=== PATIENT | male | born 1960 | race Caucasian/White ===

== ENCOUNTER 2018-03-17 17:08 | Observation (INO) ==
[2018-03-17] MEDS ORDERED: Sod Chloride 0.9% Inj 1,000 ML IV.SIG ONE (17:29)
--- NOTE | 2018-03-17 17:40 | ED ---
HPI General Chief complaint: Weakness Stated complaint: Poss pneumonia/vomiting/mumbling/falling/sob Time Seen by Provider: 03/17/18 17:17 Source: patient, family and RN notes reviewed Mode of arrival: ambulatory History of Present Illness HPI narrative: 57yM presenting with fever, cough, nausea and vomiting, and multiple falls. The patient states that for the past several days he's been " too weak to walk" and has had multiple falls, had a fever of 104F 2 days ago, has a non-productive cough, and multiple episodes of vomiting. His is concerned that he is aspirating when he vomits. The patient presented today because he was unable to ambulate secondary to generalized weakness. Patient is visiting from [place]. Last viral load undetectable, T cell count >500. Related Data Home Medications Medication Instructions Recorded Confirmed lopinavir-ritonavir [Kaletra] 2 tab PO Q12H 03/17/18 03/17/18 tenofovir disoproxil fumarate 300 mg PO DAILY 03/17/18 03/17/18 zidovudine 300 mg PO Q12H 03/17/18 03/17/18 Allergies Allergy/AdvReac Type Severity Reaction Status Date / Time Bleach (Sodium Hypochlorite) Allergy Rash Verified 03/17/18 17:15 latex Allergy Rash Verified 03/17/18 17:15 Review of Systems ROS: all other systems reviewed are negative Constitutional Reports body ache(s), Reports chills, Reports fever(s), Reports frequent falls and Reports poor appetite Eyes Denies loss of vision ENT Denies nasal congestion Cardiovascular Denies chest pain Respiratory Reports cough Gastrointestinal Denies abdominal pain, Reports nausea and Reports vomiting Genitourinary Denies dysuria Musculoskeletal Reports myalgias Integumentary/Breasts Denies rash Neurologic Reports frequent falls PMFSH History History Provided By: Patient Medical History Medical History AIDS (Acute) Social History Social History Substance History: No History of Abuse Smoking Status: Current every day smoker Tobacco Type: Cigarettes How Often Do You Have a Drink Containing Alcohol: Never Recent Travel in [facility] within the Last 8 Weeks: No Recent Out of Country Travel within the Last 8 Weeks: No Exam Const General: frail appearing Nutritional Appearance: cachectic HENMT Head: normocephalic and atraumatic Face and sinus: normal facial exam Other: Mucosa dry Eyes General: appearance normal, both eyes and all related structures Pupils: PERRL Chest Chest: normal inspection of the chest Resp Effort & Inspection: normal respiratory effort Other: Coarse breath sounds at bases bilaterally Cardio Rate: regular rate Rhythm: regular rhythm GI Other: Soft and non-tender in all quadrants, no guarding or rebound Skin General: no rashes or lesions noted Neuro General: alert, awake, oriented x3 and no focal motor deficits Psych Affect: normal affect Course Initial Documented Vital Signs Temperature 97.3 F L 03/17/18 17:11 Pulse Rate 73 03/17/18 17:11 Respiratory Rate 20 03/17/18 17:11 Blood Pressure 116/64 03/17/18 17:11 Pulse Oximetry 96 03/17/18 17:11 Last Documented Vital Signs Temperature 97.3 F L 03/17/18 17:11 Pulse Rate 54 L 03/17/18 19:38 Respiratory Rate 18 03/17/18 19:38 Blood Pressure 116/73 03/17/18 19:38 Pulse Oximetry 97 03/17/18 19:38 Medical Decision Making [facility] Narrative Medical decision making narrative: Assessment: 57yM presenting with fever, cough, nausea/ vomiting, multiple falls Plan: EKG and monitor IV fluids, antiemetics Labs, including lactate CXR CT abd/pelvis and CTH Addendum: Patient remains unable to tolerate PO while in the ED. Workup shows mild hyponatremia, hemoconcentration/ dehydration, otherwise labs unremarkable. CXR negative, CTH shows ? artifact from tent, rad recommends non-emergent MRI; CT abd/ pelvis shows left 10th rib fracture and right lung consolidation ( possible mass). This patient requires IV hydration and re-evaluation until able to tolerate PO. Case discussed with Dr. Cote of [facility]. Medical Screen Exam Complete: Yes Emergency Medical Condition: Yes Differential Diagnosis Differential Diagnosis: Differential diagnosis includes, but is not limited to: pneumonia, UTI, dehydration, electrolyte abnormality, sepsis/SIRS Lab Data Lab results reviewed: Yes I reviewed the patient's lab results. Result diagrams: 03/17/18 18:00 03/17/18 18:00 Lab Results 03/17/18 03/17/18 03/17/18 Range/Units 18:00 18:00 18:00 CBC w Diff Slide review pending WBC 5.4 (4.0-11.0) th/mm3 RBC 5.40 (4.50-5.90) mil/mm3 Hgb 17.6 H (13.0-17.0) gm/dL Hct 51.6 H (39.0-51.0) % MCV 95.5 (80.0-100.0) fL MCH 32.5 (27.0-34.0) pg MCHC 34.1 (32.0-36.0) % RDW 14.2 (11.6-17.2) % Plt Count 224 (150-450) th/mm3 MPV 10.5 (7.0-11.0) fL Neut % (Auto) 51.2 (16.0-70.0) % Lymph % (Auto) 34.0 (9.0-44.0) % Reynolds % (Auto) 11.3 H (0.0-8.0) % Eos % (Auto) 1.9 (0.0-4.0) % Baso % (Auto) 1.6 (0.0-2.0) % Neut # (Auto) 2.8 (1.8-7.7) th/mm3 Lymph # (Auto) 1.8 (1.0-4.8) th/mm3 Reynolds # (Auto) 0.6 (0.0-0.9) th/mm3 Eos # (Auto) 0.1 (0.0-0.4) th/mm3 Baso # (Auto) 0.1 (0.0-0.2) th/mm3 WBC Differential . Diff Scan Auto diff confirmed Differential Comment . Platelet Estimate Normal (Normal) Platelet Morphology Enlarged H (Normal) Sodium 130 L (136-145) meq/L Potassium 3.5 (3.5-5.1) meq/L Chloride 94 L (98-107) meq/L Carbon Dioxide 24.5 (21.0-32.0) meq/L Anion Gap 12 (5-15) meq/L BUN 29 H (7-18) mg/dL Creatinine 0.98 (0.60-1.30) mg/dL Estimated GFR 79 L (>89) mL/min Random Glucose 105 (74-106) mg/dL Lactic Acid (0.4-2.0) mmol/L Calcium 8.9 (8.5-10.1) mg/dL Phosphorus Cancelled 4.1 Magnesium Cancelled 3.1 H Total Bilirubin 1.3 H (0.2-1.0) mg/dL AST 60 H (15-37) U/L ALT 49 (12-78) U/L Alkaline Phosphatase 68 (45-117) U/L Troponin I Cancelled Less than 0.02 L Total Protein 8.7 H (6.4-8.2) g/dL Albumin 3.5 (3.4-5.0) g/dL Lipase (73-393) U/L Urine Color (Yellw/Straw) Urine Clarity (Clear) Urine pH (5.0-8.5) Ur Specific Banks (1.002-1.035) Urine Protein (Neg-Trace) mg/dL Urine Glucose (UA) (Negative) mg/dL Urine Ketones (Negative) mg/dL Urine Occult Blood (Negative) Urine Nitrate (Negative) Urine Bilirubin (Negative) Urine Ictotest (Negative) Urine Urobilinogen (Less than 2) mg/dL Ur Leukocyte Esterase (Negative) Urine RBC (0-3) /hpf Urine WBC (0-5) /hpf Ur Squamous Epith Cells (0-5) /hpf Urine Bacteria (None) /hpf Hyaline Casts (0-3) /lpf Urine Mucus (Occasional) /lpf Micro UA Comment Ur Microscopic Review Urine Culture Comments 03/17/18 03/17/18 03/17/18 Range/Units 18:00 18:55 19:07 CBC w Diff WBC (4.0-11.0) th/mm3 RBC (4.50-5.90) mil/mm3 Hgb (13.0-17.0) gm/dL Hct (39.0-51.0) % MCV (80.0-100.0) fL MCH (27.0-34.0) pg MCHC (32.0-36.0) % RDW (11.6-17.2) % Plt Count (150-450) th/mm3 MPV (7.0-11.0) fL Neut % (Auto) (16.0-70.0) % Lymph % (Auto) (9.0-44.0) % Reynolds % (Auto) (0.0-8.0) % Eos % (Auto) (0.0-4.0) % Baso % (Auto) (0.0-2.0) % Neut # (Auto) (1.8-7.7) th/mm3 Lymph # (Auto) (1.0-4.8) th/mm3 Reynolds # (Auto) (0.0-0.9) th/mm3 Eos # (Auto) (0.0-0.4) th/mm3 Baso # (Auto) (0.0-0.2) th/mm3 WBC Differential Diff Scan Differential Comment Platelet Estimate (Normal) Platelet Morphology (Normal) Sodium (136-145) meq/L Potassium (3.5-5.1) meq/L Chloride (98-107) meq/L Carbon Dioxide (21.0-32.0) meq/L Anion Gap (5-15) meq/L BUN (7-18) mg/dL Creatinine (0.60-1.30) mg/dL Estimated GFR (>89) mL/min Random Glucose (74-106) mg/dL Lactic Acid 1.7 (0.4-2.0) mmol/L Calcium (8.5-10.1) mg/dL Phosphorus Magnesium Total Bilirubin (0.2-1.0) mg/dL AST (15-37) U/L ALT (12-78) U/L Alkaline Phosphatase (45-117) U/L Troponin I Total Protein (6.4-8.2) g/dL Albumin (3.4-5.0) g/dL Lipase 304 (73-393) U/L Urine Color Yellow (Yellw/Straw) Urine Clarity Clear (Clear) Urine pH 6.0 (5.0-8.5) Ur Specific Banks Greater/equal 1.030 (1.002-1.035) Urine Protein 100 H (Neg-Trace) mg/dL Urine Glucose (UA) Negative (Negative) mg/dL Urine Ketones 15 H (Negative) mg/dL Urine Occult Blood Trace (Negative) Urine Nitrate Negative (Negative) Urine Bilirubin Negative (Negative) Urine Ictotest Negative (Negative) Urine Urobilinogen 2.0 H (Less than 2) mg/dL Ur Leukocyte Esterase Negative (Negative) Urine RBC 0-3 (0-3) /hpf Urine WBC 0-5 (0-5) /hpf Ur Squamous Epith Cells 0-5 (0-5) /hpf Urine Bacteria Few H (None) /hpf Hyaline Casts 4-10 H (0-3) /lpf Urine Mucus Many H (Occasional) /lpf Micro UA Comment Culture not ind Ur Microscopic Review Microscopic reviewed Urine Culture Comments Culture not ind Imaging Data Radiologist's impression: Chest X-Ray 03/17/18 17:29 CONCLUSION: No acute cardiopulmonary abnormality is identified. Background lung changes may indicate obstructive airways disease/emphysema. Abdomen/Pelvis CT 03/17/18 18:53 CONCLUSION: 1. Dense area of subsegmental consolidation in the medial right lower lung parasagittal region. Since the lesion is devoid of air bronchograms, cannot exclude a tumor. 2. 11 mm hypodense lesion in the superior spleen. 3. Left 10th rib fracture. 4. Multiple subcutaneous varices in the lower abdominal wall extending to the inguinal region. Head CT 03/17/18 19:02 CONCLUSION: 1. No acute findings in the brain. 2. Dense area of masslike calcification in the right posterior parieto- occipital region, possibly related to the tentorium. May consider further characterization with nonemergent MRI with and without contrast. . ECG Data Attestation: I personally reviewed and interpreted this ECG as follows: Interpretation: Rate: 60 BPM Rhythm: Sinus [place]: Left Intervals: Normal intervals, no blocks, QTc 443 ms Q waves: V2 T waves: Upright, no inversions ST segments: No elevations or depressions Impression: Non-specific EKG, no previous EKG available for comparison. Discharge Plan Discharge Disposition Patient Disposition: 30 Still Patient Discharge Condition Condition: Stable Discharge Details Diagnosis: Dehydration, Hyponatremia, Multiple falls, Closed rib fracture, Intractable vomiting, Lung mass Physicians Team ED Provider: Charmaine Randall Primary Care Provider: Primary Care Physici,[place] Rxs /Orders / Referrals /Forms Prescriptions: No Action zidovudine 300 mg Tablet 300 mg PO Q12H RF: 0 tenofovir disoproxil fumarate 300 mg Tablet 300 mg PO DAILY RF: 0 lopinavir-ritonavir [Kaletra] 200-50 mg Tablet 2 tab PO Q12H RF: 0 Discharge Interventions Interventions: Vital Signs Last Done: 03/17/18 19:38 Status ED Status: With Doctor
--- NOTE | 2018-03-17 17:55 | XR ---
EXAM DATE: 03/17/2018 5:29 PM EDT AGE/SEX: 57 years / Male INDICATIONS: . Cough, weakness, short of breath. CLINICAL DATA: This is the patient's initial encounter. Patient reports that signs and symptoms have been present for 1 day and indicates a pain score of 0/10. MEDICAL/SURGICAL HISTORY: None. None. COMPARISON: No prior exams available for comparison. FINDINGS: Frontal and lateral views of the chest demonstrate a normal-sized cardiac silhouette. EKG lines overl ie the patient. Lungs are hyperexpanded. No pleural effusion, airspace consolidation, or pneumothorax is identified. There are left rib changes likely related to old healed fractures. Sclerotic density in the right proximal arm measuring 11 mm appears to be within the soft tissues adjacent to the proxi mal humerus. CONCLUSION: No acute cardiopulmonary abnormality is identified. Background lung changes may indicate obstructive airways disease/emphysema. Electronically signed by: Russ Abreu MD 03/17/2018 5:54 PM EDT
[2018-03-17 18:25] LABS: Baso # (Auto) 0.1 th/mm3 (0.0-0.2); Baso % (Auto) 1.6 % (0.0-2.0); Chloride 94 meq/L (98-107); Eos # (Auto) 0.1 th/mm3 (0.0-0.4); Eos % (Auto) 1.9 % (0.0-4.0); Hematocrit 51.6 % (39.0-51.0); Hemoglobin 17.6 gm/dL (13.0-17.0); Lymph # (Auto) 1.8 th/mm3 (1.0-4.8); Mean Corpuscular HGB Conc 34.1 % (32.0-36.0); Mean Corpuscular Hemoglobin 32.5 pg (27.0-34.0); Mean Corpuscular Volume 95.5 fL (80.0-100.0); Mean Platelet Volume 10.5 fL (7.0-11.0); Mono # (Auto) 0.6 th/mm3 (0.0-0.9); Mono % (Auto) 11.3 % (0.0-8.0); Neut # (Auto) 2.8 th/mm3 (1.8-7.7); Neut % (Auto) 51.2 % (16.0-70.0); Platelet Count 224 th/mm3 (150-450); Red Cell Distribution Width 14.2 % (11.6-17.2); Sodium 130 meq/L (136-145); White Blood Count 5.4 th/mm3 (4.0-11.0)
[2018-03-17 18:28] LABS: Calcium 8.9 mg/dL (8.5-10.1)
[2018-03-17 18:29] LABS: Albumin 3.5 g/dL (3.4-5.0); Anion Gap 12 meq/L (5-15); Blood Urea Nitrogen 29 mg/dL (7-18); Carbon Dioxide 24.5 meq/L (21.0-32.0); Glucose,Random 105 mg/dL (74-106); Magnesium 3.1 mg/dL (1.5-2.5)
[2018-03-17 18:32] LABS: Alanine Aminotransferase 49 U/L (12-78); Aspartate Aminotransferase 60 U/L (15-37); Glomerular Filtration Rate 79 mL/min (>89); Phosphorus 4.1 mg/dL (2.5-4.9)
[2018-03-17 18:33] LABS: Total Protein 8.7 g/dL (6.4-8.2)
[2018-03-17 18:35] LABS: Alkaline Phosphatase 68 U/L (45-117); Potassium 3.5 meq/L (3.5-5.1)
[2018-03-17 19:19] LABS: Clarity,Urine Clear (Clear); Color,Urine Yellow (Yellw/Straw); Glucose,Urine (UA) Negative (Negative); Leukocyte Esterase,Urine Negative (Negative); Nitrite,Urine Negative (Negative); Specific Gravity,Urine Greater/Equal 1.030 (1.002-1.035)
[2018-03-17 19:23] LABS: Bilirubin,Urine Negative (Negative); Ictotest,Urine Negative (Negative)
[2018-03-17 19:28] LABS: RBC,Urine 0-3 /hpf (0-3)
[2018-03-17 19:29] LABS: Bacteria,Urine Few /hpf; Squamous Epithelial Cell,Urine 0-5 /hpf (0-5); WBC,Urine 0-5 /hpf (0-5)
[2018-03-17 19:30] LABS: Mucus,Urine Many /lpf (Occasional)
--- NOTE | 2018-03-17 19:30 | CT ---
EXAM DATE: 03/17/2018 7:08 PM EDT AGE/SEX: 57 years / Male INDICATIONS: Trauma. Fall. CLINICAL DATA: This is the patient's initial encounter. Patient reports that signs and symptoms have been present for 1 day and indicates a pain score of 0/10. MEDICAL/SURGICAL HISTORY: None. None. RADIATION DOSE: 60.36 CTDI (mGy) COMPARISON: No prior exams available for comparison. TECHNIQUE: CT of the head without contrast. Using automated exposure control and adjustment of the mA and/or kV according to patient size, radiation dose was kept as low as reasonably achievable to ob tain optimal diagnostic quality images. DICOM format image data is available electronically for revi ew and comparison. FINDINGS: Cerebrum: The ventricles are normal for age. No evidence of midline shift, mass lesion, hemorrhage or acute infarction. No extraaxial fluid collections are seen. Posterior Fossa: The cerebellum and brainstem are intact. The 4th ventricle is midline. There is a densely calcified 1.5 cm mass in the right posterior parietal mid convexity region. There is no conne ction to the inner table. The location suggests this may be adjacent to or related to the tentorium. The cerebellopontine angle is unremarkable. Extracranial: The visualized portion of the orbits is intact. Skull: The calvaria is intact. No evidence of skull fracture. CONCLUSION: 1. No acute findings in the brain. 2. Dense area of masslike calcification in the right posterior parieto-occipital region, possibly re lated to the tentorium. May consider further characterization with nonemergent MRI with and without c ontrast. . Electronically signed by: Bharat Melendez MD 03/17/2018 7:28 PM EDT
[2018-03-17 19:37] LABS: Platelet Estimate Normal (Normal)
[2018-03-17] MEDS ORDERED: Bisacodyl 10 MG Supp RECTAL PRN (19:59)
--- NOTE | 2018-03-17 20:26 | CT ---
EXAM DATE: 03/17/2018 6:55 PM EDT AGE/SEX: 57 years / Male INDICATIONS: Nausea. Vomiting. Weakness. CLINICAL DATA: This is the patient's initial encounter. Patient reports that signs and symptoms have been present for 1 week and indicates a pain score of 0/10. MEDICAL/SURGICAL HISTORY: None. None. ORAL CONTRAST: No oral contrast ingested. RADIATION DOSE: 4.45 CTDI (mGy) COMPARISON: No prior exams available for comparison. TECHNIQUE: Multiple contiguous axial images were obtained through the abdomen and pelvis following b olus infusion of 75 ml Omnipaque 350 (iohexol) nonionic water-soluble contrast as a single exam dos e. No oral contrast ingested. Using automated exposure control and adjustment of the mA and/or kV ac cording to patient size, radiation dose was kept as low as reasonably achievable to obtain optimal di agnostic quality images. DICOM format image data is available electronically for review and comparis on. FINDINGS: Lower Lungs: There is focal consolidation in the medial right lung and the paraesophageal groove talia uring 3.4 cm. There are also patchy acinar infiltrates in the medial right lower lung. The left lower lung is clear. Liver: The liver has a homogeneous density without space-occupying lesion. There is no dilation of th e biliary tree. No calcified gallstones. Spleen: Normal size. 11 mm oval hypodense lesion in the upper spleen. Pancreas: Unremarkable without mass or calcification. Kidneys: Normal in size and shape. No evidence of mass or hydronephrosis. Adrenal Glands: Unremarkable. Aorta: The aorta and proximal iliac vessels are grossly unremarkable without aneurysmal dilation. Bowel/Mesentery: The bowel loops are grossly unremarkable. The cecum and sigmoid colon have a normal configuration. Abdominal Wall: Intact. There are multiple subcutaneous varices in the lower anterior pelvic wall ex tending down to the inguinal region. Retroperitoneum: No evidence of adenopathy in the retrocrural, para-aortic, or deep pelvic regions. Bladder: Contours are smooth. Reproductive Organs: No abnormal masses or calcifications seen. Inguinal: The inguinal region is unremarkable without evidence of adenopathy. Bony Structures: Displaced fracture of the lower lateral left 10th rib.. CONCLUSION: 1. Dense area of subsegmental consolidation in the medial right lower lung parasagittal region. Sinc e the lesion is devoid of air bronchograms, cannot exclude a tumor. 2. 11 mm hypodense lesion in the superior spleen. 3. Left 10th rib fracture. 4. Multiple subcutaneous varices in the lower abdominal wall extending to the inguinal region. Electronically signed by: Bharat Melendez MD 03/17/2018 8:24 PM EDT
[2018-03-17] MEDS ORDERED: Sod Chloride 0.9% Inj 1,000 ML IV.CONT SCH (20:30)
[2018-03-17] MEDS: Sod Chloride 0.9% Inj 1,000 ML IV.CONT SCH (21:05)
[2018-03-17] MEDS: RITONAVIR PO SCH (21:06)
[2018-03-17] MEDS: LOPINAVIR PO SCH (21:06)
[2018-03-18] MEDS: Sod Chloride 0.9% Inj 1,000 ML IV.CONT SCH ×2 (04:47→05:27)
[2018-03-18 06:32] LABS: Baso # (Auto) 0.1 th/mm3 (0.0-0.2); Eos # (Auto) 0.3 th/mm3 (0.0-0.4); Eos % (Auto) 4.3 % (0.0-4.0); Hematocrit 43.3 % (39.0-51.0); Lymph % (Auto) 32.4 % (9.0-44.0); Mean Corpuscular HGB Conc 33.2 % (32.0-36.0); Mean Corpuscular Hemoglobin 32.3 pg (27.0-34.0); Mean Corpuscular Volume 97.4 fL (80.0-100.0); Mean Platelet Volume 8.9 fL (7.0-11.0); Mono # (Auto) 0.7 th/mm3 (0.0-0.9); Mono % (Auto) 11.6 % (0.0-8.0); Neut % (Auto) 49.7 % (16.0-70.0); Platelet Count 222 th/mm3 (150-450); Red Blood Count 4.45 mil/mm3 (4.50-5.90); White Blood Count 6.1 th/mm3 (4.0-11.0)
[2018-03-18 06:41] LABS: Hemoglobin 14.4 gm/dL (13.0-17.0)
[2018-03-18 07:16] LABS: Alanine Aminotransferase 34 U/L (12-78); Albumin 2.6 g/dL (3.4-5.0); Alkaline Phosphatase 53 U/L (45-117); Anion Gap 10 meq/L (5-15); Aspartate Aminotransferase 36 U/L (15-37); Blood Urea Nitrogen 19 mg/dL (7-18); Calcium 7.7 mg/dL (8.5-10.1); Glomerular Filtration Rate Greater Than 89 mL/min (>89); Glucose,Random 88 mg/dL (74-106); Potassium 3.1 meq/L (3.5-5.1); Sodium 136 meq/L (136-145); Total Protein 6.3 g/dL (6.4-8.2)
[2018-03-18 07:19] LABS: Chloride 104 meq/L (98-107)
[2018-03-18] MEDS ORDERED: Tenofovir 300 MG Tablet PO SCH (09:00)
[2018-03-18] MEDS: RITONAVIR PO SCH ×2 (09:42→21:50)
[2018-03-18] MEDS: LOPINAVIR PO SCH ×2 (09:42→21:50)
--- NOTE | 2018-03-18 11:18 | P.HP ---
History of Present Illness Primary Care Physician: No Primary Care Physician Chief Complaint: Weakness, fall History of Present Illness: 57-year-old male with known history of HIV who is down here visiting from [place]. Patient indicates that over the last few days he has had symptoms to include weakness, lightheadedness, falling, difficulty ambulating. Patient indicates that he has had significant nausea which is caused him not to really eat or drink over the last 3 days. Because he has been so weak and is fallen he came to the hospital for evaluation. Patient was found to have signs of dehydration, CT scan indicates possible lung mass versus dense consolidation, fractured ribs. Patient did not have any constitutional symptoms to include tachycardia, tachypnea, hypoxia, leukocytosis, fever to indicate possible infection. Patient states that he usually takes his antiviral medication except for the last 3 days since he has had no appetite and not really eating or drinking anything. Patient denies any chest pain, shortness of breath, abdominal pain. He does admit to nausea, poor appetite, generalized weakness. - Diagnosis (1) Dehydration (2) Hyponatremia (3) Multiple falls (4) Lung mass Review of Systems All other systems reviewed negative except as stated in HPI Constitutional: Reports lack of energy, Reports weakness, Reports other ( Decreased appetite) Gastrointestinal: Reports nausea Neurologic: Reports frequent falls PMFSH - History History Provided By: Patient - Medical History Medical History: Medical History (Last Reviewed 03/18/18 @ 10:54 by THUY June) AIDS - Surgical History Surgical History: Surgical History (Last Updated 03/18/18 @ 10:54 by THUY June) No history of previous surgery - Family History Family History: Family History (Last Updated 03/18/18 @ 10:54 by THUY June) Father History of cancer Mother History of cancer - Tobacco History Second Hand Smoke Exposure: Yes Tobacco Use In Past 30 Days: Yes Smoking Status: Current every day smoker Tobacco Type: Cigarettes Packs Per Day: 0.5 Years Smoked: 40 - Alcohol History How Often Do You Have a Drink Containing Alcohol: Never - Substance Use History Substance History: Past History - Travel History Recent Travel in the [place] Within the Last 8 Weeks: Yes Recent Travel Out of the Country Within the Last 8 Weeks: No - Immunization History Tetanus Immunization: <5 Years Hx Influenza Vaccine This Season: No Medications and Allergies Active Medications: Active Medications Al Hydroxide/Mg Hydroxide (Milk Of Magnesia Liq) 30 ml PO Q12H PRN PRN Reason: Mild Constipation Bisacodyl (Dulcolax Supp) 10 mg RECTAL DAILY PRN PRN Reason: SEVERE CONSITIPATION Sodium Chloride (Ns Inj) 1,000 mls @ 100 mls/hr IV.CONT .Q10H [facility] Last Admin: 03/18/18 05:27 Dose: Not Given Lactulose (Lactulose Liq) 30 ml PO DAILY PRN PRN Reason: SEVERE CONSITIPATION Lopinavir/Ritonavir (Kaletra 200/50 Mg) 2 tab PO Q12H [facility] Last Admin: 03/18/18 09:42 Dose: 2 tab Metoclopramide HCl (Reglan Inj) 5 mg IV.PUSH Q6HR PRN; Protocol PRN Reason: NAUSEA OR VOMITING Last Admin: 03/17/18 22:35 Dose: 5 mg Ondansetron HCl (Zofran Inj) 4 mg IV.PUSH Q6H PRN PRN Reason: NAUSEA OR VOMITING Last Admin: 03/18/18 04:53 Dose: 4 mg Sennosides (Senokot) 17.2 mg PO Q12H PRN PRN Reason: Moderate Constipation Tenofovir Disoproxil Fumarate (Viread) 300 mg PO DAILY [facility] Last Admin: 03/18/18 09:41 Dose: 300 mg Zidovudine (Retrovir) 300 mg PO Q12HR [facility] Last Admin: 03/18/18 09:41 Dose: 300 mg Allergies Allergy/AdvReac Type Severity Reaction Status Date / Time Bleach (Sodium Hypochlorite) Allergy Rash Verified 03/17/18 17:15 latex Allergy Rash Verified 03/17/18 17:15 Home Medications Medication Instructions Recorded Confirmed Type lopinavir-ritonavir [Kaletra] 2 tab PO Q12H 03/17/18 03/17/18 History tenofovir disoproxil fumarate 300 mg PO DAILY 03/17/18 03/17/18 History zidovudine 300 mg PO Q12H 03/17/18 03/17/18 History Exam Vital signs: Vital Signs 03/17/18 17:11 03/17/18 17:35 03/17/18 18:09 Temperature 97.3 F L Pulse Rate 73 70 61 Respiratory Rate 20 Blood Pressure 116/64 118/83 Pulse Oximetry 96 96 96 03/17/18 19:38 03/17/18 21:53 03/17/18 21:54 Temperature 97.4 F L Pulse Rate 54 L 63 54 L Respiratory Rate 18 18 18 Blood Pressure 116/73 115/66 121/72 Pulse Oximetry 97 96 97 03/18/18 00:00 03/18/18 08:00 Temperature 97.6 F 97.6 F Pulse Rate 54 L 63 Respiratory Rate 18 16 Blood Pressure 113/64 111/63 Pulse Oximetry 97 94 L Intake & Output 03/17/18 03/18/18 03/18/18 18:59 06:59 18:59 Intake Total 2000.0 / 2000.0 Output Total 350 / 350 Balance 1650.0 / 1650.0 Weight 49 kg 50 kg Intake: IV 2000.0 / 2000.0 NS Inj 1,000 ML @ 100 mls/hr IV 1000.0 / 1000.0 .CONT .Q10H TIM Rx#:[id number] NS Inj 1,000 ML @ Wide Open IV. 1000 / 1000 SIG BOLUS ONE Rx#:[id number] Output: Urine 350 / 350 Other: # Voids 1 Weight On Admission 50 kg Narrative: GENERAL: Well-developed, cachectic, in no acute distress. alert and orientated HEENT: Head is normocephalic without any lesions or masses noted. Facial features are symmetric. Eyes: Pupils equal round reactive to light. Extraocular muscles are intact. Conjunctivae were clear. Oropharyngeal: Pharynx without any erythema edema. Tongue is midline without deviation. Buccal mucosa is moist without any masses or lesions NECK: Supple without any masses. Trachea midline no deviation. No JVD, no bruits are appreciated CARDIAC: Regular rhythm, regular rate. S1/S2 are heard. No murmurs gallops or rubs. LUNGS: Clear to auscultation bilaterally. No wheeze, rhonchi or rales. No use of accessory muscles on inspiration or expiration. ABDOMEN: Soft, nontender. Nondistended. Bowel sounds heard in all 4 quadrants. No organomegaly or masses. Negative rebound, negative guarding EXTREMITIES: No edema, pulses are equal bilaterally. No cyanosis or clubbing NEUROLOGY: Mood and affect appear appropriate. Cranial nerves II through XII grossly intact. Muscle strength 5/5 in upper and lower extremities bilaterally. Deep tendon reflexes are 2+ in upper and lower extremities bilaterally. Results - Labs CBC & Chem 7: 03/18/18 06:20 03/18/18 06:20 Labs: Laboratory Results - last 24 hr 03/17/18 03/17/18 03/17/18 18:00 18:00 18:00 CBC w Diff Slide review pending WBC 5.4 RBC 5.40 Hgb 17.6 H Hct 51.6 H MCV 95.5 MCH 32.5 MCHC 34.1 RDW 14.2 Plt Count 224 MPV 10.5 Neut % (Auto) 51.2 Lymph % (Auto) 34.0 [place] % (Auto) 11.3 H Eos % (Auto) 1.9 Baso % (Auto) 1.6 Neut # (Auto) 2.8 Lymph # (Auto) 1.8 [place] # (Auto) 0.6 Eos # (Auto) 0.1 Baso # (Auto) 0.1 WBC Differential . Diff Scan Auto diff confirmed Differential Comment . Platelet Estimate Normal Platelet Morphology Enlarged H Sodium 130 L Potassium 3.5 Chloride 94 L Carbon Dioxide 24.5 Anion Gap 12 BUN 29 H Creatinine 0.98 Estimated GFR 79 L Random Glucose 105 Lactic Acid Calcium 8.9 Phosphorus Cancelled 4.1 Magnesium Cancelled 3.1 H Total Bilirubin 1.3 H Direct Bilirubin Indirect Bilirubin AST 60 H ALT 49 Alkaline Phosphatase 68 Troponin I Cancelled Less than 0.02 L Total Protein 8.7 H Albumin 3.5 Lipase Urine Color Urine Clarity Urine pH Ur Specific [place] Urine Protein Urine Glucose (UA) Urine Ketones Urine Occult Blood Urine Nitrate Urine Bilirubin Urine Ictotest Urine Urobilinogen Ur Leukocyte Esterase Urine RBC Urine WBC Ur Squamous Epith Cells Urine Bacteria Hyaline Casts Urine Mucus Micro UA Comment Ur Microscopic Review Urine Culture Comments 03/17/18 03/17/18 03/17/18 18:00 18:00 18:55 CBC w Diff WBC RBC Hgb Hct MCV MCH MCHC RDW Plt Count MPV Neut % (Auto) Lymph % (Auto) [place] % (Auto) Eos % (Auto) Baso % (Auto) Neut # (Auto) Lymph # (Auto) [place] # (Auto) Eos # (Auto) Baso # (Auto) WBC Differential Diff Scan Differential Comment Platelet Estimate Platelet Morphology Sodium Potassium Chloride Carbon Dioxide Anion Gap BUN Creatinine Estimated GFR Random Glucose Lactic Acid 1.7 Calcium Phosphorus Magnesium Total Bilirubin 1.4 H Direct Bilirubin 0.3 H Indirect Bilirubin 1.1 H AST ALT Alkaline Phosphatase Troponin I Total Protein Albumin Lipase Urine Color Yellow Urine Clarity Clear Urine pH 6.0 Ur Specific [place] Greater/equal 1.030 Urine Protein 100 H Urine Glucose (UA) Negative Urine Ketones 15 H Urine Occult Blood Trace Urine Nitrate Negative Urine Bilirubin Negative Urine Ictotest Negative Urine Urobilinogen 2.0 H Ur Leukocyte Esterase Negative Urine RBC 0-3 Urine WBC 0-5 Ur Squamous Epith Cells 0-5 Urine Bacteria Few H Hyaline Casts 4-10 H Urine Mucus Many H Micro UA Comment Culture not ind Ur Microscopic Review Microscopic reviewed Urine Culture Comments Culture not ind 03/17/18 03/18/18 03/18/18 19:07 06:20 06:20 CBC w Diff Auto diff final WBC 6.1 RBC 4.45 L Hgb 14.4 D Hct 43.3 MCV 97.4 MCH 32.3 MCHC 33.2 RDW 14.0 Plt Count 222 MPV 8.9 Neut % (Auto) 49.7 Lymph % (Auto) 32.4 [place] % (Auto) 11.6 H Eos % (Auto) 4.3 H Baso % (Auto) 2.0 Neut # (Auto) 3.0 Lymph # (Auto) 2.0 [place] # (Auto) 0.7 Eos # (Auto) 0.3 Baso # (Auto) 0.1 WBC Differential . Diff Scan Differential Comment . Platelet Estimate Platelet Morphology Sodium 136 Potassium 3.1 L Chloride 104 D Carbon Dioxide 22.0 Anion Gap 10 BUN 19 H Creatinine 0.61 Estimated GFR Greater than 89 Random Glucose 88 Lactic Acid Calcium 7.7 L D Phosphorus Magnesium Total Bilirubin 1.3 H Direct Bilirubin Indirect Bilirubin AST 36 ALT 34 Alkaline Phosphatase 53 Troponin I Total Protein 6.3 L D Albumin 2.6 L D Lipase 304 Urine Color Urine Clarity Urine pH Ur Specific [place] Urine Protein Urine Glucose (UA) Urine Ketones Urine Occult Blood Urine Nitrate Urine Bilirubin Urine Ictotest Urine Urobilinogen Ur Leukocyte Esterase Urine RBC Urine WBC Ur Squamous Epith Cells Urine Bacteria Hyaline Casts Urine Mucus Micro UA Comment Ur Microscopic Review Urine Culture Comments - Imaging Impressions Chest X-Ray 03/17/18 17:29 CONCLUSION: No acute cardiopulmonary abnormality is identified. Background lung changes may indicate obstructive airways disease/emphysema. Abdomen/Pelvis CT 03/17/18 18:53 CONCLUSION: 1. Dense area of subsegmental consolidation in the medial right lower lung parasagittal region. Since the lesion is devoid of air bronchograms, cannot exclude a tumor. 2. 11 mm hypodense lesion in the superior spleen. 3. Left 10th rib fracture. 4. Multiple subcutaneous varices in the lower abdominal wall extending to the inguinal region. Head CT 03/17/18 19:02 CONCLUSION: 1. No acute findings in the brain. 2. Dense area of masslike calcification in the right posterior parieto- occipital region, possibly related to the tentorium. May consider further characterization with nonemergent MRI with and without contrast. . Caprini VTE Risk Assessment Caprini VTE Risk Assessment: Moderate/High Risk (score >= 2) Caprini Risk Assessment Model: Point Value = 1 Point Value = 2 Point Value = 3 Point Value = 5 Age 41-60 Minor surgery BMI > 25 kg/m2 Swollen legs Varicose veins or History of unexplained or recurrent spontaneous Oral contraceptives or hormone replacement Sepsis (< 1 month) Serious lung disease, including pneumonia (< 1 month) Abnormal pulmonary function Acute myocardial infarction Congestive heart failure (< 1 month) History of inflammatory bowel disease Medical patient at bed rest Age 61-74 Arthroscopic surgery Major open surgery (> 45 min) Laparoscopic surgery (> 45 min) Malignancy Confined to bed (> 72 hours) Immobilizing plaster cast Central venous access Age >= 75 History of VTE Family history of VTE Factor V Leiden Prothrombin [id number] Lupus anticoagulant Anticardiolipin antibodies Elevated serum homocysteine Heparin-induced thrombocytopenia Other congenital or acquired thrombophilia Stroke (< 1 month) Elective arthroplasty Hip, pelvis, or leg fracture Acute spinal cord injury (< 1 month) Prophylaxis Regimen: Total Risk Factor Score Risk Level Prophylaxis Regimen 0-1 Low Early ambulation 2 Moderate Order ONE of the following: *Sequential Compression Device (SCD) *Heparin 5000 units SQ BID 3-4 Higher Order ONE of the following medications: *Heparin 5000 units SQ TID *Enoxaparin/Lovenox 40 mg SQ daily (WT < 150 kg, CrCl > 30 mL/min) *Enoxaparin/Lovenox 30 mg SQ daily (WT < 150 kg, CrCl > 10-29 mL/min) *Enoxaparin/Lovenox 30 mg SQ BID (WT < 150 kg, CrCl > 30 mL/min) AND/OR *Sequential Compression Device (SCD) 5 or more Highest Order ONE of the following medications: *Heparin 5000 units SQ TID (Preferred with Epidurals) *Enoxaparin/Lovenox 40 mg SQ daily (WT < 150 kg, CrCl > 30 mL/min) *Enoxaparin/Lovenox 30 mg SQ daily (WT < 150 kg, CrCl > 10-29 mL/min) *Enoxaparin/Lovenox 30 mg SQ BID (WT < 150 kg, CrCl > 30 mL/min) AND *Sequential Compression Device (SCD) Assessment and Plan - Assessment (1) Dehydration Code(s): E86.0 - Dehydration Status: Acute (2) Hyponatremia Code(s): E87.1 - Hypo-osmolality and hyponatremia Status: Acute (3) Multiple falls Code(s): R29.6 - Repeated falls Status: Acute (4) Lung mass Code(s): R91.8 - Other nonspecific abnormal finding of lung field Status: Acute - Plan Abnormal CT scan of the abdomen -CT scan indicating dense area of subsegmental consolidation in the medial right lower lung parasagittal region which is devoid of air bronchograms cannot exclude tumor -We will need to obtain CT of the thorax with and without contrast to evaluate for any such mass or possible aspiration Generalized weakness with falls -CT indicating displaced fracture of the left 10th rib -CT of the head also indicating a dense area of masslike calcification in the right posterior parietal occipital region. Possibly related to the tentorium. May consider nonemergent MRI with and without contrast -We will obtain MRI of the brain with and without contrast -Physical therapy evaluation Azotemia -Secondary to decreased appetite, poor p.o. intake -Continue IV fluids Electrolyte abnormalities with hyponatremia, hypokalemia -Continue monitor and replete as needed HIV -Continue antiviral medications DVT prevention -Sequential compression devices
[2018-03-18 13:21] LABS: Magnesium 2.6 mg/dL (1.5-2.5)
[2018-03-18] MEDS ORDERED: Gadobutrol PF 7.5 MMOL/7.5 ML Vial (for RAD) IV.SIG ONE (14:05)
--- NOTE | 2018-03-18 14:50 | CT ---
EXAM DATE: 03/18/2018 2:12 PM EDT AGE/SEX: 57 years / Male INDICATIONS: Abnormality seen on CT Abdomen/pelvis. Evaluate for lung mass. CLINICAL DATA: This is the patient's initial encounter. Patient reports that signs and symptoms have been present for 1 day and indicates a pain score of 0/10. MEDICAL/SURGICAL HISTORY: None. None. RADIATION DOSE: 6.37 CTDI (mGy) COMPARISON: No prior exams available for comparison. TECHNIQUE: Multiple contiguous axial images were obtained through the chest during bolus infusion of 55 ml Omnipaque 350 (iohexol) nonionic water-soluble contrast as a single exam dose. Images were obtained in suspended respiration using multiple row detector helical technique. Using automated exp osure control and adjustment of the mA and/or kV according to patient size, radiation dose was kept a s low as reasonably achievable to obtain optimal diagnostic quality images. DICOM format image data is available electronically for review and comparison. FINDINGS: There is focal dense consolidation in the medial aspect of the right lower lobe with some patchy airs pace disease more laterally. The upper lobes, right middle lobe and left lower lobe are clear. Remote displaced left rib fractures noted posteriorly. There is mild right hilar adenopathy up to 1.4 cm in subcarinal adenopathy up to 1.1 cm. There is per ibronchial thickening in the right lower lobe. No acute findings in the upper abdomen. CONCLUSION: 1. Consolidation in the right lower lobe predominantly medially with mild right hilar and mediastina l adenopathy. Findings most characteristic of a bronchopneumonia or aspiration. Cannot completely exc lude underlying neoplasm. Recommend follow-up scan after treatment. 2. Mild emphysema. Remote left rib fractures. Electronically signed by: Sterling Hathaway MD 03/18/2018 2:48 PM EDT
--- NOTE | 2018-03-18 15:01 | MR ---
EXAM DATE: 03/18/2018 12:39 PM EDT AGE/SEX: 57 years / Male INDICATIONS: Cephalgia. Abnormal CT scan. CLINICAL DATA: This is the patient's initial encounter. Patient reports that signs and symptoms have been present for 2 days and indicates a pain score of 7/10. MEDICAL/SURGICAL HISTORY: Hepatitis. HIV. . Left leg sx. COMPARISON: [facility], CT HEAD W/O CONTRAST, 03/17/2018. . TECHNIQUE: Multiplanar, multisequence examination of the brain was performed without and with 5 ml Ga davist (gadobutrol) contrast as a single exam dose. FINDINGS: Cerebrum: The ventricles are normal for age. No evidence of midline shift, mass lesion, hemorrhage or acute infarction. No extraaxial fluid collections are seen. The pituitary gland and suprasellar cistern are normal in configuration. White Matter: No significant signal abnormalities are seen in the white matter. Posterior Fossa: The cerebellum and brainstem are intact. The 4th ventricle is midline. The cerebel lopontine angle is unremarkable. The cerebellar tonsils are normal in position. The area of dense ca lcification seen along the right side of the posterior fossa is visualized by MRI. This appears well defined without evidence of significant contrast enhancement. There is no evidence of edema within th e right cerebellar hemisphere. Primary consideration would be benign calcification of the tentorium. Diffusion Imaging: No focal areas of restricted diffusion are seen. No evidence of acute infarction . Extracranial: The visualized portions of the orbits and paranasal sinuses are unremarkable. Post Contrast: No abnormal areas of parenchymal or dural enhancement. No evidence of blood-brain ba rrier breakdown. CONCLUSION: 1. The abnormality on CT appears to represent a benign calcification of the tentorium. 2. No acute intracranial abnormality is identified. Electronically signed by: Yvon Harrington MD 03/18/2018 2:59 PM EDT
--- NOTE | 2018-03-18 16:13 | P.DIET ---
Nutritional Evaluation Type of nutrition evaluation: initial Nutrition screening: Weight Loss > 10 lbs Subjective Oral Diet Tolerance Assessment Indicates: Nausea Subjective Comments: nausea w/decreased po intake Objective - Diagnosis Intractable Vomiting, Dehydration, Hyponatremia - Objective [place] body weight: 78.2 kg % IBW: 64 Body Weight Used for Calculations: Actual (50kg) Energy Needs - Lower Range (kCal/kg): 40 Energy Needs - Upper Range (kCal/kg): 45 Lower Limit kCal/kg (kCals): 2,000 Upper Limit kCal/kg (kCals): 2,250 Lower Limit Protein Factor (Grams per Kg): 1.2 Upper Limit Protein Factor (Grams per Kg): 1.5 Lower Protein Needs (Protein): 60 Upper Protein Needs (Protein): 75 Fluid Factor (ml/kg): 30 Estimated Fluid Needs (ml): 1,500 Dietitian Reviewed in Medical Record: Current diet, Curent medications, Intake & Output, Labs, Medical history Diet Order: Regular Oral Diet Intake Amount: Fair 50-75% Objective Comments: PMH: AIDS Assessment Assessment: Pt is at high nutrition risk r/t diagnosis, decreased appetite w/wt loss and low BMI 15.4. Pt w/75% po intake today at time of this entry. Send Ensure Enlive TID. Plan to follow-up for pt supplement acceptance. Labs reviewed. Dietitian following. Recommendations: 1. Send Ensure Enlive TID 2. Follow-up for pt supplement acceptance 3. Dietitian following Dietitian to Monitor: Lab values, Electrolytes, Supplement acceptance, Intake & Output, Diet tolerance, Weight change, PO Intake, Medical course
[2018-03-18] MEDS: Amoxicillin/Clavulanate 875/125 MG Tablet PO SCH (21:50)
--- NOTE | 2018-03-18 22:42 | ECG ---
Date Performed: 03/17/2018 Time Performed: 18:00:29 PTAGE: 57 years EKG: Sinus rhythm MARKED LEFT AXIS DEVIATION NONSPECIFIC ST ELEVATION ABNORMAL ECG NO PREVIOUS TRACING DOCTOR: Anthony Maldonado Interpretating Date/Time 03/18/2018 22:41:13
[2018-03-19 06:22] LABS: Hematocrit 42.8 % (39.0-51.0); Hemoglobin 14.3 gm/dL (13.0-17.0); Mean Corpuscular HGB Conc 33.3 % (32.0-36.0); Mean Corpuscular Hemoglobin 32.1 pg (27.0-34.0); Mean Corpuscular Volume 96.5 fL (80.0-100.0); Platelet Count 300 th/mm3 (150-450); Red Blood Count 4.44 mil/mm3 (4.50-5.90); Red Cell Distribution Width 14.5 % (11.6-17.2); White Blood Count 6.7 th/mm3 (4.0-11.0)
[2018-03-19 06:27] LABS: Chloride 110 meq/L (98-107); Potassium 3.2 meq/L (3.5-5.1); Sodium 141 meq/L (136-145)
[2018-03-19 06:49] LABS: Alanine Aminotransferase 34 U/L (12-78); Albumin 2.6 g/dL (3.4-5.0); Alkaline Phosphatase 52 U/L (45-117); Anion Gap 11 meq/L (5-15); Aspartate Aminotransferase 37 U/L (15-37); Blood Urea Nitrogen 12 mg/dL (7-18); Glomerular Filtration Rate Greater Than 89 mL/min (>89); Glucose,Random 84 mg/dL (74-106); Magnesium 2.1 mg/dL (1.5-2.5); Total Protein 6.1 g/dL (6.4-8.2)
[2018-03-19 06:53] LABS: Calcium 7.4 mg/dL (8.5-10.1); Eosinophils 5 % (0-4); Lymphocytes 36 % (9-44); Monocytes 9 % (0-8)
[2018-03-19 06:54] LABS: Platelet Estimate Normal (Normal); RBC Morphology Normal (Normal)
[2018-03-19] MEDS: Amoxicillin/Clavulanate 875/125 MG Tablet PO SCH (08:37)
[2018-03-19] MEDS: RITONAVIR PO SCH (08:37)
[2018-03-19] MEDS: LOPINAVIR PO SCH (08:37)
--- NOTE | 2018-03-19 08:50 | P.PN ---
Subjective Interval history: 57-year-old male who is seen and examined today for follow-up on weakness, poor p.o. intake, nausea. Patient doing much better. He is eating well without any recurrent nausea. Patient getting much stronger. Physical therapy indicates that he is much better today and does not require any outpatient physical therapy. Patient is very eager to go home and wants to be discharged as soon as possible. Vital signs are stable. Patient remains afebrile. Physical Exam Vital signs: Vital Signs 03/18/18 12:00 03/18/18 15:42 03/18/18 20:00 Temperature 97.0 F L 97.2 F L 96.7 F L Pulse Rate 59 L 57 L 51 L Respiratory Rate 16 16 20 Blood Pressure 111/62 106/61 115/66 Pulse Oximetry 95 96 99 03/19/18 00:00 Temperature 96.1 F L Pulse Rate 20 L Respiratory Rate 20 Blood Pressure 118/63 Pulse Oximetry 96 Intake & Output 03/18/18 03/19/18 03/19/18 18:59 06:59 18:59 Intake Total 2011 1728 / 1728 1000 / 1000 Balance 2011 1728 / 1728 1000 / 1000 Weight 50.4 kg Intake: IV 1052 / 1052 1248 / 1248 1000 / 1000 NS + KCl 20 mEq Inj 1,000 ML @ 452 / 452 1248 / 1248 1000 / 1000 100 mls/hr IV.CONT .Q10H TIM Rx #:[id number] NS Inj 1,000 ML @ 100 mls/hr IV 600 / 600 .CONT .Q10H TIM Rx#:[id number] Oral 960 / 960 480 / 480 Other: # Voids 1,100 4 # Bowel Movements 1 1 Narrative: GENERAL: Well-developed, well-nourished, in no acute distress. alert and orientated HEENT: Head is normocephalic without any lesions or masses noted. Facial features are symmetric. Eyes: Extraocular muscles are intact. Conjunctivae were clear. NECK: Supple without any masses. Trachea midline no deviation. No JVD, CARDIAC: Regular rhythm, regular rate. S1/S2 are heard. No murmurs gallops or rubs. LUNGS: Clear to auscultation bilaterally. No wheeze, rhonchi or rales. No use of accessory muscles on inspiration or expiration. ABDOMEN: Soft, nontender. Nondistended. Bowel sounds heard in all 4 quadrants. No organomegaly or masses. Negative rebound, negative guarding EXTREMITIES: No edema, pulses are equal bilaterally. No cyanosis or clubbing NEUROLOGY: Mood and affect appear appropriate. Cranial nerves II through XII grossly intact. Moving all extremities, speech is clear Results - Labs CBC & Chem 7: 03/19/18 05:43 03/19/18 05:43 Laboratory Results - last 24 hr 03/18/18 03/19/18 03/19/18 06:20 05:43 05:43 CBC w Diff Slide review pending WBC 6.7 RBC 4.44 L Hgb 14.3 Hct 42.8 MCV 96.5 MCH 32.1 MCHC 33.3 RDW 14.5 Plt Count 300 D MPV 9.0 WBC Differential Manual diff final Seg Neuts % (Manual) 50 Lymphocytes % (Manual) 36 Monocytes % (Manual) 9 H Eosinophils % (Manual) 5 H Abs Neuts (Manual) 3.4 Differential Comment . Platelet Estimate Normal Platelet Morphology Enlarged H RBC Morphology Normal Sodium 136 141 Potassium 3.1 L 3.2 L Chloride 104 D 110 H Carbon Dioxide 22.0 20.0 L Anion Gap 10 11 BUN 19 H 12 Creatinine 0.61 0.67 Estimated GFR Greater than 89 Greater than 89 Random Glucose 88 84 Calcium 7.7 L D 7.4 L* Prot Corrected Calcium 7.9 L Magnesium 2.6 H 2.1 Total Bilirubin 1.3 H 1.1 H AST 36 37 ALT 34 34 Alkaline Phosphatase 53 52 Total Protein 6.3 L D 6.1 L Albumin 2.6 L D 2.6 L - Imaging Impressions Chest CT 03/18/18 00:00 CONCLUSION: 1. Consolidation in the right lower lobe predominantly medially with mild right hilar and mediastinal adenopathy. Findings most characteristic of a bronchopneumonia or aspiration. Cannot completely exclude underlying neoplasm. Recommend follow-up scan after treatment. 2. Mild emphysema. Remote left rib fractures. Head MRI 03/18/18 00:00 CONCLUSION: 1. The abnormality on CT appears to represent a benign calcification of the tentorium. 2. No acute intracranial abnormality is identified. Assessment and Plan - Assessment (1) Dehydration Code(s): E86.0 - Dehydration Status: Acute (2) Hyponatremia Code(s): E87.1 - Hypo-osmolality and hyponatremia Status: Acute (3) Multiple falls Code(s): R29.6 - Repeated falls Status: Acute (4) Lung mass Code(s): R91.8 - Other nonspecific abnormal finding of lung field Status: Acute - Plan Abnormal CT scan of the abdomen -CT scan indicating dense area of subsegmental consolidation in the medial right lower lung parasagittal region which is devoid of air bronchograms cannot exclude tumor -CT scan of the thorax with contrast indicating dense consolidation, possible aspiration but could not completely exclude malignancy. -This was discussed with the patient that he would require outpatient follow-up for further evaluation and management and routine monitoring Generalized weakness with falls, improved -CT indicating displaced fracture of the left 10th rib -CT of the head also indicating a dense area of masslike calcification in the right posterior parietal occipital region. Possibly related to the tentorium. May consider nonemergent MRI with and without contrast -MRI of the brain indicated benign calcification of the tentorium. . -Physical therapy evaluation Aspiration pneumonia -Continue Augmentin Azotemia, resolved -Secondary to decreased appetite, poor p.o. intake -Continue IV fluids Electrolyte abnormalities with hyponatremia, hypokalemia -Continue monitor and replete as needed HIV -Continue antiviral medications DVT prevention -Sequential compression devices Discharge Planning: Discharge home in stable condition Activity: Ad ike. Diet: Regular diet Medication per medication reconciliation Follow-up with primary medical doctor in 1 week
[2018-03-19 09:23] VITALS: BP 113/62; PULSE 57; RESP 18; TEMP 97.5; O2SAT 97
== END 2018-03-19 10:49 | disposition home or self-care (01) ==
LOC: PHED 17:08 → PHEDA 17:08 → PH3 21:54
PROVIDERS: ADMIT Hospitalist; ATTEND Hospitalist